=== PATIENT | male | born 1950 | race Hispanic/Latino ===

== ENCOUNTER → 2017-10-16 | Day surgery (SDC) | payer OTHER ==
[2017-10-15 11:20] LABS: BASOPHILS # (AUTO) 0.1 (0.0-0.1); BASOPHILS % 0.7 % (0.0-1.0); EOSINOPHILS # (AUTO) 0.1 (0.0-0.4); EOSINOPHILS % 1.3 % (0.0-6.0); HEMATOCRIT 37.9 % (38.2-49.6); HEMOGLOBIN 12.3 g/dL (14.0-18.0); LYMPHOCYTES # (AUTO) 1.7 (1.0-3.2); LYMPHOCYTES % 24.3 % (18.0-39.1); MEAN CORPUSCULAR HEMOGLOBIN 29.1 pg (28-32); MEAN CORPUSCULAR HGB CONC 32.5 g/dL (31-35); MEAN CORPUSCULAR VOLUME 89.8 fL (81-99); MONOCYTES # (AUTO) 0.4 (0.2-0.8); MONOCYTES % 6.3 % (4.4-11.3); NEUTROPHILS # (AUTO) 4.6 (2.1-6.9); NEUTROPHILS % 66.4 % (38.7-80.0); PLATELET COUNT 209 x10e3/uL (140-360); RED BLOOD COUNT 4.22 x10e6/uL (4.3-5.7); RED CELL DISTRIBUTION WIDTH 12.8 % (11.7-14.4)
[2017-10-15 11:40] LABS: BLOOD UREA NITROGEN 18 mg/dL (7-26); BUN/CREATININE RATIO 16 (6-25); CALCIUM 9.1 mg/dL (8.4-10.2); CARBON DIOXIDE 29 mmol/L (22-29); CHLORIDE 104 mmol/L (98-107); EST GLOMERULAR FILTRATION RATE > 60 ML/MIN (60-); GLUCOSE 134 mg/dL (74-118); SODIUM 141 mmol/L (136-145)
[2017-10-15 11:42] LABS: INR 1.13; PARTIAL THROMBOPLASTIN TIME 27.8 seconds (23.8-35.5); PROTHROMBIN TIME 13.6 seconds (11.9-14.5)
--- NOTE | 2017-10-15 12:30 | Diagnostic Imaging Report ---
PROCEDURE: Frontal and lateral views of the chest. COMPARISON: None. INDICATIONS: PREOPERATIVE CHEST XRAY FOR CARPAL TUNNEL SURGERY FINDINGS: Lines/tubes: None. Lungs: The lungs are well inflated. There is no evidence of pneumonia or pulmonary edema. Pleura: There is no pleural effusion or pneumothorax. Heart and mediastinum: The heart and the mediastinum are normal. Bones: No acute bony abnormality. IMPRESSION: No acute cardiopulmonary disease. Dictated by: Shekhar Ronquillo M.D. on 10/15/2017 at 12:30 Electronically approved by: Shekhar Ronquillo M.D. on 10/15/2017 at 12:30
[~2017-10-16] MED LIST: AMLODIPINE; AMLODIPINE BESY10 MG PO; ASPIR 8181 MG PO; ASPIRIN325 MG PO; BACITRACIN 50,000 UNIT VIAL ONE; BUPIVACAINE HCL 0.5% INJ 30 ML VIAL INJ ONE; CARVEDILOL; CARVEDILOL12.5 MG PO; CEFAZOLIN SOD 2 GM/D5W 50ML 50 ML IV ONE; DEXAMETHASONE SOD PHOS INJ 4 MG/ML VIAL ONE; ECOTRIN325 MG PO; ELIQUIS PO; FENTANYL CITRATE/PF 100MCG/2 ML INJ ONE; LIDOCAINE HCL 2% LOCAL INJ 5 ML SDV VIAL INJ ONE; LISINOPRIL; LISINOPRIL-HCT1 EACH PO; MUPIROCIN 2% OINT 22 GM TUBE ONE; NAPROXEN; NORCO 5-325 TA1 EACH PO; OMEPRAZOLE40 MG PO; ONDANSETRON HCL INJ 2 MG/ML VIAL ONE; PRAVASTATIN SOD20 MG PO; PROPOFOL IV EMULSION 10 MG/ML 20 ML VIAL ONE; SEVOFLURANE INHAL SOLN 250 ML PEN BTL ONE; VITAMIN D31000 UNIT PO
--- OUTSIDE RECORDS SUMMARY | 2017-10-16 08:07 | XMS REPORT ---
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 Allergies, Adverse Reactions, Alerts This patient has no known allergies or adverse reactions. Medications This patient has no known medications. Results Test Description Test Time Test Comments Text Results Atomic Results Result Comments CHEST 2 VIEWS [place] [address] Patient Name: LOURDES WOOD MR #: [id number] : 1950 Age/Sex: 67/M Req #: [id number] Adm Physician: Ordered by: NNEKA ABDI MD Report #: [id number] Location: OR Room/Bed: Procedure: [id number] DX/CHEST 2 VIEWS Exam Date: 10/15/17 Exam Time: 1210 REPORT STATUS: Signed PROCEDURE: Frontal and lateral views of the chest. COMPARISON: None. INDICATIONS: PREOPERATIVE CHEST XRAY FOR CARPAL TUNNEL SURGERY FINDINGS: Lines/tubes: None. Lungs : The lungs are well inflated. There is no evidence of pneumonia or pulmonary edema. Pleura: There is no pleural effusion or pneumothorax. Heart and mediastinum: The heart and the mediastinum are normal. Bones: No acute bony abnormality. IMPRESSION: No acute cardiopulmonary disease. Dictated by: Shekhar Ronquillo M.D. on 2017 at 12:30 Electronically approved by: Shekhar Ronquillo M.D. on 2017 at 12:30 Dictated By: SHEKHAR RONQUILLO MD 1230 Transcribed By: LILIANA on 10/15/17 1230 COPY TO: NNEKA ABDI MD
--- NOTE | 2017-10-16 14:51 | Operative Report ---
DATE OF PROCEDURE: October 16, 2017 PREOPERATIVE DIAGNOSIS: Right carpal tunnel syndrome. POSTOPERATIVE DIAGNOSIS: Right carpal tunnel syndrome PROCEDURE: Right carpal tunnel release. ANESTHESIA: General. INDUCTION: The patient is a man who presents with severe right carpal tunnel syndrome and was taken to the operating room for right carpal tunnel release. PROCEDURE IN DETAIL: After induction of anesthesia, the patient was placed on the operating table in supine position with the right arm abducted over hand table. The right hand, wrist, and forearm were prepped and draped circumferentially in sterile fashion. A tourniquet was inflated. A small midline incision was created over the median and palmar crease of the hand just distal to the distal flexor crease of the wrist. The subcutaneous fat was divided. The transverse carpal ligament was identified and incised with a #15 C-blade until the underlying median nerve came into view. As the field assistant retracted the skin edges, transverse carpal ligament was divided proximally and distally until the full length of the median nerve was exposed and decompressed within the carpal tunnel. The point of maximum compression of the nerve I feel to be about 3 cm distal to distal flexor crease of the wrist where a ligament was at its thickest. More distally, the recurrent motor branch of the nerve was preserved within its fat pad. The wound was irrigated with Bacitracin solution. Meticulous hemostasis was secured. Retractor was removed. The subcutaneous layer was closed with 3-0 Vicryl suture. The skin was closed with 3-0 nylon suture in horizontal mattress fashion. Dressing was applied. The patient was awakened and extubated in post anesthesia care unit in stable condition. No intraoperative complications were encountered. Estimated blood loss was minimal. Job#: [id number] VAS
== END | disposition home or self-care (01) ==
LOC: OR 08:04
PROVIDERS: ATTEND Neurological Surgery
DX: G56.01 Carpal tunnel syndrome, right upper limb (principal); I10 Essential (primary) hypertension; I48.91 Unspecified atrial fibrillation; G47.33 Obstructive sleep apnea (adult) (pediatric); N40.0 Benign prostatic hyperplasia without lower urinary tract symptoms; Z01.810 Encounter for preprocedural cardiovascular examination; Z01.812 Encounter for preprocedural laboratory examination; Z01.818 Encounter for other preprocedural examination; Z79.82 Long term (current) use of aspirin; Z79.02 Long term (current) use of antithrombotics/antiplatelets; Z68.41 Body mass index [BMI] 40.0-44.9, adult; Z86.73 Personal history of transient ischemic attack (TIA), and cerebral infarction without residual deficits
CPT/HCPCS: 36415; 64721; 71046; 80048; 85025; 85610; 85730; 93005; J1100; J2001; J2405